=== PATIENT | male | born 1985 | race African-American/Black ===

== ENCOUNTER 2019-08-08 22:16 | Emergency (ER) | payer OTHER ==
[~2019-08-08] VITALS: Ht 170.2 cm; Wt 97.5 kg
[2019-08-08 23:19] VITALS: BP 120/86
== END 2019-08-08 23:19 | disposition home or self-care (01) ==
LOC: ED 22:16
DX: J32.9 Chronic sinusitis, unspecified (principal)

== ENCOUNTER 2019-08-19 07:04 | Emergency (ER) | payer OTHER ==
[~2019-08-19] VITALS: Ht 172.7 cm; Wt 97.5 kg
[2019-08-19 07:12] VITALS: Ht 172.7 cm; Wt 97.5 kg
[2019-08-19 07:46] VITALS: BP 152/84
== END 2019-08-19 07:46 | disposition home or self-care (01) ==
LOC: ED 07:04
DX: R05 Cough (principal); Z02.79 Encounter for issue of other medical certificate; Z87.09 Personal history of other diseases of the respiratory system

== ENCOUNTER 2019-08-20 12:12 | Emergency (ER) | payer OTHER ==
[~2019-08-20] VITALS: Ht 172.7 cm; Wt 95.3 kg
[2019-08-20 12:18] VITALS: Ht 172.7 cm; Wt 95.3 kg
[2019-08-20 12:33] VITALS: BP 105/72
== END 2019-08-20 12:32 | disposition home or self-care (01) ==
LOC: ED 12:12
DX: Z02.79 Encounter for issue of other medical certificate (principal); Z13.89 Encounter for screening for other disorder

== ENCOUNTER 2019-08-21 07:12 | Emergency (ER) | payer OTHER ==
[~2019-08-21] VITALS: Ht 170.2 cm; Wt 98.0 kg
[2019-08-21 07:35] VITALS: Ht 170.2 cm; Wt 98.0 kg
[2019-08-21 07:46] VITALS: BP 116/72
== END 2019-08-21 07:46 | disposition home or self-care (01) ==
LOC: ED 07:12
DX: R05 Cough (principal); R09.89 Other specified symptoms and signs involving the circulatory and respiratory systems; Z13.89 Encounter for screening for other disorder